=== PATIENT | male | born 1940 ===

== ENCOUNTER 2017-05-19 12:38 | Emergency (ER) | payer BC ==
[2017-05-19 13:12] LABS: URINE BILIRUBIN NEGATIVE (NEGATIVE); URINE BLOOD 3+ (NEGATIVE); URINE CLARITY Clear (Clear); URINE COLOR Yellow (YELLOW); URINE GLUCOSE (UA) NORMAL (Normal); URINE LEUKOCYTE ESTERASE NEG Leu/uL (Negative); URINE NITRATE NEGATIVE (NEGATIVE); URINE PROTEIN 1+ mg/dL (NEGATIVE); URINE UROBILINOGEN NORMAL mg/dL (0.2-1.0)
[2017-05-19 14:02] LABS: BASO % 0.6 % (0.0-2.0); EOS # 0.3 K/uL (0.0-0.7); EOS % 3.8 % (0.0-4.0); HEMOGLOBIN 14.1 g/dL (12.0-18.0); LYMPH # 2.4 K/uL (1.0-4.3); LYMPH % 33.5 % (20.0-40.0); MEAN CELL VOLUME 89.7 fL (80.0-94.0); MEAN CORPUSCULAR HGB CONC 33.5 g/dL (33.0-37.0); MEAN PLATELET VOLUME 8.9 fL (7.2-11.7); MONO # 0.7 K/uL (0.0-0.8); MONO % 9.9 % (0.0-10.0); NEUT # 3.7 K/uL (1.8-7.0); NEUT % 52.2 % (50.0-75.0); NRBC % 0.1 % (0.0-2.0); RBC 4.7 Mil/uL (4.40-5.90); WHITE BLOOD COUNT 7.2 K/uL (4.8-10.8)
[2017-05-19 14:10] LABS: INR 0.9; PROTHROMBIN TIME 10.5 SECONDS (9.7-12.2)
[2017-05-19 14:15] LABS: ALB/GLOB RATIO 1.4 (1.0-2.1); ALBUMIN 4.5 g/dL (3.5-5.0); ALT/SGPT 34 U/L (21-72); AST/SGOT 26 U/L (17-59); BLOOD UREA NITROGEN 21 mg/dL (9-20); CALCIUM 8.9 mg/dl (8.6-10.4); GFR AFRICAN-AMERICAN > 60; GFR NON-AFRICAN AMERICAN > 60
--- NOTE | 2017-05-19 15:17 | CT ---
PROCEDURE: CT Abdomen and Pelvis without Oral or IV contrast. HISTORY: Hematuria. Left lower back pain. COMPARISON: None available TECHNIQUE: Contiguous axial images of the abdomen and pelvis. No oral or IV contrast administered. Coronal and Sagittal reformats generated and reviewed. Radiation dose: Total exam DLP = 1061.22 mGy-cm. This CT exam was performed using one or more of the following dose reduction techniques: Automated exposure control, adjustment of the mA and/or kV according to patient size, and/or use of iterative reconstruction technique. FINDINGS: There is limited evaluation of the solid organs without the administration of IV contrast. LOWER THORAX: Bibasilar atelectasis. There is no visible pleural effusion or pneumothorax. 2 mm right lower lobe calcified granuloma. LIVER: Unremarkable unenhanced appearance. GALLBLADDER AND BILE DUCTS: Unremarkable unenhanced appearance. PANCREAS: Unremarkable unenhanced appearance. SPLEEN: Punctate splenic calcification, likely granuloma. 8 mm probable splenule. ADRENALS: Mild bilateral adrenal gland hypertrophy. KIDNEYS AND URETERS: No hydronephrosis or obstructing renal calculus. Exophytic 14 mm left renal hypodensity and faintly visualized 12 mm left lower pole renal hypodensity likely cysts ; renal ultrasound may be considered for further evaluation. BLADDER: Mildly thick-walled urinary bladder. REPRODUCTIVE: Heterogeneous enlarged prostate gland measures approximately 5.5 x 7.9 cm and contains calcifications. APPENDIX: The appendix appears within normal limits of caliber. No secondary signs of acute appendicitis. BOWEL: The stomach is nondistended. Lack of oral contrast limits evaluation for bowel pathology. The bowel loops appear within normal limits of caliber without evidence of intestinal obstruction. PERITONEUM: No significant free fluid. No definite free air. LYMPH NODES: Prominent but sub cm mesenteric lymph nodes with associated mesenteric inflammatory stranding. VASCULATURE: Atherosclerotic calcifications. No aortic aneurysm. BONES: Degenerative changes. OTHER FINDINGS: Bilateral fat containing inguinal hernias. IMPRESSION: Prominent but sub cm mesenteric lymph nodes with associated mesenteric inflammatory stranding. Correlate clinically for possibility mesenteric adenitis/panniculitis. Exophytic 14 mm left renal hypodensity and faintly visualized 12 mm left lower pole renal hypodensity likely cysts ; renal ultrasound may be considered for further evaluation. Bilateral adrenal gland hypertrophy. Heterogeneous enlarged prostate gland measures approximately 5.5 x 7.9 cm and contains calcifications. Bilateral fat containing inguinal hernias. Mildly thick-walled urinary bladder. Recommend correlation with urinalysis. Additional findings as above.
[2017-05-19 15:41] VITALS: BP 158/56; PULSE 90; RESP 18; TEMP 97; O2SAT 99
--- NOTE | 2017-05-19 16:15 | C.PDOC ---
History Of Present Illness Pt c/o hematuria. Time Seen by Provider: 05/19/17 13:11 Chief Complaint (Nursing): Male Genitourinary History Per: Patient Onset/Duration Of Symptoms: Days (about 1 week), Intermittent Episodes Current Symptoms Are (Timing): Still Present Severity: Moderate Associated Symptoms: Back Pain, Urinary Symptoms Alleviating Factors: None Additional History Per: Prior Records Past Medical History Reviewed: Historical Data, Nursing Documentation, Vital Signs Vital Signs: Last Vital Signs Temp 97.0 F L 05/19/17 15:40 Pulse 90 05/19/17 15:40 Resp 18 05/19/17 15:40 BP 158/56 H 05/19/17 15:40 Pulse Ox 99 05/19/17 15:40 - Medical History PMH: Benign Prostatic Hyperplasia, HTN Family History: States: Unknown Family Hx - Social History Hx Alcohol Use: No Hx Substance Use: No Review Of Systems Except As Marked, All Systems Reviewed And Found Negative. Constitutional: Negative for: Fever, Weakness Cardiovascular: Negative for: Chest Pain Respiratory: Negative for: Shortness of Breath Gastrointestinal: Negative for: Vomiting, Abdominal Pain, Diarrhea Genitourinary: Positive for: Frequency, Hematuria. Negative for: Scrotal Pain Musculoskeletal: Positive for: Back Pain (left lower). Negative for: Neck Pain Skin: Negative for: Rash Neurological: Negative for: Weakness, Numbness, Seizures, Altered Mental Status Physical Exam - Physical Exam Appears: Non-toxic, No Acute Distress Skin: Normal Color, Warm, Dry, No Rash Head: Atraumatic, Normacephalic Eye(s): bilateral: Normal Inspection, PERRL, EOMI Oral Mucosa: Moist Neck: Normal ROM, Supple Cardiovascular: Rhythm Regular Respiratory: Normal Breath Sounds, No Accessory Muscle Use Gastrointestinal/Abdominal: Soft, No Tenderness, No Mass Back: No CVA Tenderness, No Vertebral Tenderness Male Genital: No Testicular Tenderness, No Testicular Swelling, No Scrotal Swelling Extremity: Normal ROM Pulses: Left Femoral: Normal, Right Femoral: Normal Neurological/Psych: Oriented x3, Normal Motor, Normal Sensation ED Course And Treatment - Laboratory Results Result Diagrams: 05/19/17 13:59 05/19/17 13:59 Interpretation Of Abnormal: Hematuria O2 Sat by Pulse Oximetry: 99 Pulse Ox Interpretation: Normal - CT Scan/US CT abd/pelv Other Rad Studies (CT/US): Read By Radiologist, Radiology Report Reviewed CT/US Interpretation: IMPRESSION: Prominent but sub cm mesenteric lymph nodes with associated mesenteric inflammatory stranding. Correlate clinically for possibility mesenteric adenitis/panniculitis. Exophytic 14 mm left renal hypodensity and faintly visualized 12 mm left lower pole renal hypodensity likely cysts ; renal ultrasound may be considered for further evaluation. Bilateral adrenal gland hypertrophy. Heterogeneous enlarged prostate gland measures approximately 5.5 x 7.9 cm and contains calcifications. Bilateral fat containing inguinal hernias. Mildly thick-walled urinary bladder. Recommend correlation with urinalysis. Additional findings as above. Reassessment Condition: Improved Disposition Discussed With Dr.: Bina Woo Comment: I discussed with him the pt's presentation and lab/CT scan findings. He wants pt to f/up in his office for further evaluation. He wants pt to get Rx for Cipro and Finasteride. Doctor Will See Patient In The: Office Counseled Patient/Family Regarding: Studies Performed, Diagnosis, Need For Followup, Rx Given - Disposition Referrals: Bina Woo MD [Staff Provider] - Casper Conley DO [Doctor Osteopathy] - Disposition: HOME/ ROUTINE Disposition Time: 16:17 Condition: IMPROVED Additional Instructions: Follow up with your Urologist this week for further evaluation and treatment. Follow up with your primary doctor for your high blood pressure. Return to the ER if you develop fever, trouble urinating, abdominal pain, worsening of symptoms or if you have any other concerns. Prescriptions: Ciprofloxacin [Cipro] 1 tab PO BID #14 tab Finasteride [Proscar] 5 mg PO DAILY #30 tab Instructions: Acute Hematuria (ED) - Clinical Impression Clinical Impression: Hematuria, Lesion of left jena kidney, Hypertension
== END 2017-05-19 16:34 | disposition home or self-care (01) ==
LOC: C.ER 12:38
DX: R31.9 Hematuria, unspecified (principal); N28.9 Disorder of kidney and ureter, unspecified; I10 Essential (primary) hypertension
CPT/HCPCS: 74176; 80053; 81001; 85025; 85610; 85730; 87086; 96374; 99284; J2270

== ENCOUNTER 2017-06-06 05:13 | Observation (INO) | payer BC, MEDICARE ==
--- NOTE | 2017-06-06 05:30 | C.PDOC ---
History Of Present Illness Patient is a 76 y/o male, with a Hx of BPH, who presents to the ED with a complaint of blood in urine since last night. Patient states he was last able to void at midnight. Patient states he called his urologist Dr. Bina Woo who sent patient to the ED. Patient complains of pressure-like pain in lower abdomen. Patient denies fever. Time Seen by Provider: 06/06/17 05:20 History Per: Patient History/Exam Limitations: no limitations Onset/Duration Of Symptoms: Hrs (last night) Current Symptoms Are (Timing): Still Present Severity: Mild Quality Of Discomfort: Pressure Associated Symptoms: Urinary Symptoms (hematuria) Recent travel outside of the [place]: No Past Medical History Reviewed: Historical Data, Nursing Documentation, Vital Signs Vital Signs: Last Vital Signs Temp 98.4 F 06/06/17 05:33 Pulse 88 06/06/17 05:33 Resp 20 06/06/17 05:33 BP 167/71 H 06/06/17 05:33 Pulse Ox 97 06/06/17 05:33 - Medical History PMH: Benign Prostatic Hyperplasia, HTN Surgical History: No Surg Hx Family History: States: No Known Family Hx - Social History Hx Tobacco Use: No Hx Alcohol Use: No Hx Substance Use: No Review Of Systems Constitutional: Negative for: Fever Gastrointestinal: Positive for: Abdominal Pain (lower abdomen) Genitourinary: Positive for: Hematuria Physical Exam - Physical Exam Appears: Well, Non-toxic, No Acute Distress Skin: Warm, Dry, No Diaphoretic, No Pale Head: Atraumatic, Normacephalic Eye(s): bilateral: Normal Inspection, EOMI Neck: Normal ROM Chest: Symmetrical Cardiovascular: Rhythm Regular, No Murmur Respiratory: Normal Breath Sounds, No Rales, No Rhonchi, No Wheezing Gastrointestinal/Abdominal: Soft, Tenderness (suprapubic tenderness,), Distention (firm abdomen and bladder), No Guarding Back: Normal Inspection, No CVA Tenderness Extremity: Bilateral: Atraumatic, Normal Color And Temperature, Normal ROM Neurological/Psych: Oriented x3, Normal Speech Gait: Steady ED Course And Treatment - Laboratory Results Result Diagrams: 06/06/17 06:00 06/06/17 06:00 Lab Interpretation: Abnormal Medical Decision Making Medical Decision Making: Prior records reviewed patient seen recently on 05/19/17 for hematuria, normal labs and CT Dr. Bina Woo called ED ahead and requested a nick catheter inserted, and CBI, admit to PCP and will see in AM Plan: * Blood work * UA * Nick cath insertion * CBI Patient also seen by Dr Mack who inserted 22Fr 3-way catheter. Labs reviewed Hospitalist admits Dr Conley's patients, page placed Spoke with Dr Perez who accepts patient Disposition - Disposition Disposition: HOSPITALIZED Disposition Time: 06:45 Condition: STABLE - POA Present On Arrival: None - Clinical Impression Clinical Impression: Hematuria - Scribe Statement The provider has reviewed the documentation as recorded by the Scribe Faustina Romo All medical record entries made by the Scribe were at my direction and personally dictated by me. I have reviewed the chart and agree that the record accurately reflects my personal performance of the history, physical exam, medical decision making, and the department course for this patient. I have also personally directed, reviewed, and agree with the discharge instructions and disposition. Decision To Admit - Pt Status Changed To: Hospital Disposition Of: Observation - . Bed Request Type: Regular Admitting Physician: Hollis Perez Patient Diagnosis: Hematuria Procedures - Catheter Insertion (Urinary) Prophylactic Antibiotic Given: No Preparation: Povidone-Iodine Type of Catheter Inserted: 3 way, Nick Catheter Ug[place] Size: 22 Catheter Balloon Size (mLs): 5 Results: unable to pass (blood and clots), urine sent for UA/C&S Patient Tolerated Procedure: well, other Complications: bloody urine
[2017-06-06 06:08] LABS: HEMOGLOBIN 13.4 g/dL (12.0-18.0); MEAN CELL VOLUME 87.5 fL (80.0-94.0); MEAN CORPUSCULAR HEMOGLOBIN 30.7 pg (27.0-31.0); MEAN PLATELET VOLUME 8.3 fL (7.2-11.7); RBC 4.36 Mil/uL (4.40-5.90); RED CELL DISTRIBUTION WIDTH 13.6 % (11.5-14.5); WHITE BLOOD COUNT 9.9 K/uL (4.8-10.8)
[2017-06-06 06:16] LABS: INR 0.9; PROTHROMBIN TIME 10.5 SECONDS (9.7-12.2)
[2017-06-06] MEDS ORDERED: Lidocaine 2% Jelly (Uro-Jet) ONE ×2 (06:16→10:36)
[2017-06-06 06:23] LABS: ALB/GLOB RATIO 1.4 (1.0-2.1); ALBUMIN 4.6 g/dL (3.5-5.0); ALT/SGPT 36 U/L (21-72); AST/SGOT 34 U/L (17-59); BLOOD UREA NITROGEN 21 mg/dL (9-20); CALCIUM 9.4 mg/dl (8.6-10.4); GFR AFRICAN-AMERICAN > 60; GFR NON-AFRICAN AMERICAN > 60
[2017-06-06 06:24] LABS: URINE AMORPHOUS SEDIMENT OCC /ul (<OCC); URINE BILIRUBIN NEGATIVE (NEGATIVE); URINE BLOOD 2+ (NEGATIVE); URINE CLARITY Clear (Clear); URINE COLOR Red (YELLOW); URINE GLUCOSE (UA) 2+ mg/dL (Normal); URINE LEUKOCYTE ESTERASE NEG Leu/uL (Negative); URINE NITRATE NEGATIVE (NEGATIVE); URINE PROTEIN 2+ mg/dL (NEGATIVE); URINE UROBILINOGEN NORMAL mg/dL (0.2-1.0); WBC CLUMPS MANY /hpf
--- NOTE | 2017-06-06 08:58 | CP.PCM.HP ---
<ChenMarylun - Last Filed: 06/06/17 18:51> History of Present Illness - History of Present Illness History of Present Illness: Dr. Musa Montero [facility], Kenneth [id number] 76 year old male with a past medical history of hypertension, BPH, nephrolithiais (s/p removal of stone), and Type 2 Diabetes Mellitus who comes into [facility] complaining of hematuria since yesterday. The patient states that last night he had the urge to void. When attempting to void the patient saw blood coming out. The patient contacted his Urologist Dr. Woo who recommended him to come into the emergency department for a further workup. The patient recently came into the emergency department on 05/19/17 for similar symptoms. In conjunction with the presenting issue he also reports some lower abdomen discomfort bilaterally. The patient denies any chest pain, shortness of breath, fevers, chills, nausea, vomiting, changes in vision, headaches, syncopal episodes, constipation, diarrhea, numbness or tingling in the lower extremities or any other complaints. PMD: [facility] Urologist: Dr. Woo Past medical history: BPH, hypertension, nephrolithiasis, Type 2 Diabetes Mellitus Medications: [facility] ([address] [place] [address]). Will call and verify home medications. Allergies: Denies Past surgical history: Removal of kidney stone Social history: Denies smoking, Social Drinker. Jewel illicit drug use. Lives with . Retired Full code Son Leonard to be proxy in case patient can no longer make medical decisions for himself. Present on Admission - Present on Admission Any Indicators Present on Admission: No Review of Systems - Constitutional Constitutional: absent: Chills, Headache - EENT Eyes: absent: Blurred Vision, Discharge, Loss of Peripheral Vision, Sees Flashes Ears: absent: Ear Pain, Dizziness Nose/Mouth/Throat: absent: Nasal Congestion, Nose Pain, Dysphagia, Mouth Pain, Facial Pain - Cardiovascular Cardiovascular: absent: Chest Pain, Diaphoresis, Irregular Heart Rhythm, Leg Edema, Pedal Edema, Syncope - Respiratory Respiratory: absent: Cough, Hemoptysis, Stridor, Chest Congestion, Excessive Mucous Production, Change in Mucous Color - Gastrointestinal Gastrointestinal: absent: Belching, Dyspepsia, Hematochezia, Loose Stools, Melena, Nausea, Vomiting - Genitourinary Genitourinary: Change in Urinary Stream, Difficulty Urinating, Bladder Distension - Integumentary Integumentary: absent: Sores, Striae, Swelling, Unusual Bruising - Neurological Neurological: absent: Abnormal Hearing, Numbness, Restless Legs, Tremor, Vertigo - Psychiatric Psychiatric: absent: Anxiety, Depression, Hopelessness, Panic Attacks - Hematologic/Lymphatic Hematologic: absent: Easy Bleeding, Easy Bruising Past Patient History - Infectious Disease Hx of Infectious Diseases: None - Past Social History Smoking Status: Never Smoked - CARDIAC Hx Hypertension: Yes - PSYCHIATRIC Hx Substance Use: No - ANESTHESIA Hx Anesthesia: No Meds Allergies/Adverse Reactions: Allergies Allergy/AdvReac Type Severity Reaction Status Date / Time No Known Allergies Allergy Verified 06/06/17 05:43 Physical Exam - Head Exam Head Exam: ATRAUMATIC, NORMAL INSPECTION, NORMOCEPHALIC - Eye Exam Eye Exam: EOMI, Normal appearance, PERRL. absent: Periorbital tenderness Pupil Exam: NORMAL ACCOMODATION, PERRL. absent: Irregular, Unequal - ENT Exam ENT Exam: Mucous Membranes Moist, Normal Exam, Normal Oropharynx - Neck Exam Neck exam: Positive for: Normal Inspection. Negative for: Lymphadenopathy, Thyromegaly - Respiratory Exam Respiratory Exam: Clear to Auscultation Bilateral, NORMAL BREATHING PATTERN - Cardiovascular Exam Cardiovascular Exam: REGULAR RHYTHM, RRR, +S1, +S2. absent: Gallop, Rubs - GI/Abdominal Exam GI & Abdominal Exam: Normal Bowel Sounds, Soft. absent: Distended, Organomegaly , Tenderness - Extremities Exam Extremities exam: Negative for: full ROM, joint swelling, pedal edema Additional comments: nick in place - Back Exam Back exam: NORMAL INSPECTION. absent: CVA tenderness (L), CVA tenderness (R), paraspinal tenderness - Neurological Exam Neurological exam: Alert, CN II-XII Intact, Normal Gait, Oriented x3 - Psychiatric Exam Psychiatric exam: Normal Affect, Normal Mood - Skin Skin Exam: Dry, Intact, Normal Color, Warm Results - Vital Signs Recent Vital Signs: Last Vital Signs Temp 98.4 F 06/06/17 05:33 Pulse 83 06/06/17 07:50 Resp 20 06/06/17 07:50 BP 168/74 H 06/06/17 07:50 Pulse Ox 98 06/06/17 07:50 - Labs Result Diagrams: 06/06/17 06:00 06/06/17 06:00 Labs: Laboratory Results - last 24 hr 06/06/17 06/06/17 06/06/17 05:29 06:00 06:00 WBC 9.9 RBC 4.36 L Hgb 13.4 Hct 38.1 MCV 87.5 D MCH 30.7 MCHC 35.0 RDW 13.6 Plt Count 184 MPV 8.3 PT 10.5 INR 0.9 APTT 38 H Sodium Potassium Chloride Carbon Dioxide Anion Gap BUN Creatinine Est GFR ( Amer) Est GFR (Non-Af Amer) Random Glucose Calcium Total Bilirubin AST ALT Alkaline Phosphatase Total Protein Albumin Globulin Albumin/Globulin Ratio Urine Color Red Urine Clarity Clear Urine pH 7.0 Ur Specific [place] 1.020 Urine Protein 2+ H Urine Glucose (UA) 2+ H Urine Ketones Trace Urine Blood 2+ H Urine Nitrate Negative Urine Bilirubin Negative Urine Urobilinogen Normal Ur Leukocyte Esterase Neg Urine WBC (Auto) 78 H Urine RBC (Auto) 1585 H Urine WBC Clumps (Auto) Many H Amorphous Sediment Occ H 06/06/17 06:00 WBC RBC Hgb Hct MCV MCH MCHC RDW Plt Count MPV PT INR APTT Sodium 128 L Potassium 4.5 Chloride 92 L Carbon Dioxide 22 Anion Gap 19 BUN 21 H Creatinine 0.8 Est GFR ( Amer) > 60 Est GFR (Non-Af Amer) > 60 Random Glucose 149 H Calcium 9.4 Total Bilirubin 0.9 AST 34 ALT 36 Alkaline Phosphatase 84 Total Protein 7.8 Albumin 4.6 Globulin 3.3 Albumin/Globulin Ratio 1.4 Urine Color Urine Clarity Urine pH Ur Specific [place] Urine Protein Urine Glucose (UA) Urine Ketones Urine Blood Urine Nitrate Urine Bilirubin Urine Urobilinogen Ur Leukocyte Esterase Urine WBC (Auto) Urine RBC (Auto) Urine WBC Clumps (Auto) Amorphous Sediment Assessment & Plan - Assessment and Plan (Free Text) Assessment: 76 year old male with a past medical history of hypertension, bph, nephrolithiasis and Type 2 Diabetes. Plan: 1.Hematuria -Chilo consulted. Rec's appreciated -?Rec's appreciated -NPO -Continue bladder irrigation -Urine cx. Will f/u with results -Rocephin 1gram q24. 2. Hyponatremia -Will continue to monitor. -TSH/T4 ordered. Will f/u with results -Lipid panel ordered. Will f/u with results -Cortisol level. Will f/u with results. -Can't due urine osmolaritiy, urine Na 2/2 to bladder irrigation 3.BPH -Proscar 5mg PO Daily -Flomax .4mg PO Daily 4.Hypertension -Lisinopril 10mg PO Daily 5. Type 2 Diabetes -Heart healthy, 2gm Na diet -Regular Insulin -Hemoglobin A1C % ordered. Will f/u with results. -Will f/u with lipid panel. PPX -Hold anticoagulation risk despite DVT risk score of 3 -SCD's -Protonix 40mg Daily <Musa Montero - Last Filed: 06/06/17 19:49> Results - Vital Signs Recent Vital Signs: Last Vital Signs Temp 97.8 F 06/06/17 15:10 Pulse 80 06/06/17 15:10 Resp 18 06/06/17 15:10 BP 147/68 06/06/17 15:10 Pulse Ox 98 06/06/17 15:10 - Labs Result Diagrams: 06/06/17 06:00 06/06/17 06:00 Labs: Laboratory Results - last 24 hr 06/06/17 06/06/17 06/06/17 05:29 06:00 06:00 WBC 9.9 RBC 4.36 L Hgb 13.4 Hct 38.1 MCV 87.5 D MCH 30.7 MCHC 35.0 RDW 13.6 Plt Count 184 MPV 8.3 PT 10.5 INR 0.9 APTT 38 H Sodium Potassium Chloride Carbon Dioxide Anion Gap BUN Creatinine Est GFR ( Amer) Est GFR (Non-Af Amer) POC Glucose (mg/dL) Random Glucose Calcium Total Bilirubin AST ALT Alkaline Phosphatase Total Protein Albumin Globulin Albumin/Globulin Ratio Triglycerides Cholesterol LDL Cholesterol Direct HDL Cholesterol Thyroxine (T4) TSH 3rd Generation Cortisol AM Sample Urine Color Red Urine Clarity Clear Urine pH 7.0 Ur Specific [place] 1.020 Urine Protein 2+ H Urine Glucose (UA) 2+ H Urine Ketones Trace Urine Blood 2+ H Urine Nitrate Negative Urine Bilirubin Negative Urine Urobilinogen Normal Ur Leukocyte Esterase Neg Urine WBC (Auto) 78 H Urine RBC (Auto) 1585 H Urine WBC Clumps (Auto) Many H Amorphous Sediment Occ H 01/27/18 01/27/18 01/27/18 06:00 11:14 11:16 WBC RBC Hgb Hct MCV MCH MCHC RDW Plt Count MPV PT INR APTT Sodium 128 L Potassium 4.5 Chloride 92 L Carbon Dioxide 22 Anion Gap 19 BUN 21 H Creatinine 0.8 Est GFR ( Amer) > 60 Est GFR (Non-Af Amer) > 60 POC Glucose (mg/dL) Random Glucose 149 H Calcium 9.4 Total Bilirubin 0.9 AST 34 ALT 36 Alkaline Phosphatase 84 Total Protein 7.8 Albumin 4.6 Globulin 3.3 Albumin/Globulin Ratio 1.4 Triglycerides 143 Cholesterol 143 LDL Cholesterol Direct 56 HDL Cholesterol 46 Thyroxine (T4) 6.48 TSH 3rd Generation 1.17 Cortisol AM Sample 60.9 H Urine Color Urine Clarity Urine pH Ur Specific [place] Urine Protein Urine Glucose (UA) Urine Ketones Urine Blood Urine Nitrate Urine Bilirubin Urine Urobilinogen Ur Leukocyte Esterase Urine WBC (Auto) Urine RBC (Auto) Urine WBC Clumps (Auto) Amorphous Sediment 06/06/17 06/06/17 11:53 17:03 WBC RBC Hgb Hct MCV MCH MCHC RDW Plt Count MPV PT INR APTT Sodium Potassium Chloride Carbon Dioxide Anion Gap BUN Creatinine Est GFR ( Amer) Est GFR (Non-Af Amer) POC Glucose (mg/dL) 123 H 169 H Random Glucose Calcium Total Bilirubin AST ALT Alkaline Phosphatase Total Protein Albumin Globulin Albumin/Globulin Ratio Triglycerides Cholesterol LDL Cholesterol Direct HDL Cholesterol Thyroxine (T4) TSH 3rd Generation Cortisol AM Sample Urine Color Urine Clarity Urine pH Ur Specific [place] Urine Protein Urine Glucose (UA) Urine Ketones Urine Blood Urine Nitrate Urine Bilirubin Urine Urobilinogen Ur Leukocyte Esterase Urine WBC (Auto) Urine RBC (Auto) Urine WBC Clumps (Auto) Amorphous Sediment Attending/Attestation - Attestation I have personally seen and examined this patient.: Yes I have fully participated in the care of the patient.: Yes I have reviewed all pertinent clinical information: Yes Notes (Text): 06/06/17 19:46 Patient was seen and examined at 8 AM History, physical, assessment and plan were thoroughly gone over with the resident. Spoke with Dr. Louis Woo and patient for Cystotscopy likely on Thursday. Musa Montero D.O.
[2017-06-06] MEDS ORDERED: Morphine 4 MG/ML VIAL ONE (10:22)
[2017-06-06 12:14] LABS: T4 6.48 ug/dL (5.5-11.0)
[2017-06-06] MEDS: (Novolin R) Insulin Human Regular 100 units/ml vial SC SCH ×3 (12:37→21:47)
--- NOTE | 2017-06-06 21:22 | PCM.URO ---
Urology Progress Note - Objective Lab Studies: Reviewed (hematuria plans: cystoscopy / most likely thursday 06/08) Lab Results Last 24 Hours: Laboratory Results - last 24 hr 06/06/17 06/06/17 06/06/17 05:29 06:00 06:00 WBC 9.9 RBC 4.36 L Hgb 13.4 Hct 38.1 MCV 87.5 D MCH 30.7 MCHC 35.0 RDW 13.6 Plt Count 184 MPV 8.3 PT 10.5 INR 0.9 APTT 38 H Sodium Potassium Chloride Carbon Dioxide Anion Gap BUN Creatinine Est GFR ( Amer) Est GFR (Non-Af Amer) POC Glucose (mg/dL) Random Glucose Calcium Total Bilirubin AST ALT Alkaline Phosphatase Total Protein Albumin Globulin Albumin/Globulin Ratio Triglycerides Cholesterol LDL Cholesterol Direct HDL Cholesterol Thyroxine (T4) TSH 3rd Generation Cortisol AM Sample Urine Color Red Urine Clarity Clear Urine pH 7.0 Ur Specific [place] 1.020 Urine Protein 2+ H Urine Glucose (UA) 2+ H Urine Ketones Trace Urine Blood 2+ H Urine Nitrate Negative Urine Bilirubin Negative Urine Urobilinogen Normal Ur Leukocyte Esterase Neg Urine WBC (Auto) 78 H Urine RBC (Auto) 1585 H Urine WBC Clumps (Auto) Many H Amorphous Sediment Occ H 06/06/17 06/06/17 06/06/17 06:00 11:14 11:16 WBC RBC Hgb Hct MCV MCH MCHC RDW Plt Count MPV PT INR APTT Sodium 128 L Potassium 4.5 Chloride 92 L Carbon Dioxide 22 Anion Gap 19 BUN 21 H Creatinine 0.8 Est GFR ( Amer) > 60 Est GFR (Non-Af Amer) > 60 POC Glucose (mg/dL) Random Glucose 149 H Calcium 9.4 Total Bilirubin 0.9 AST 34 ALT 36 Alkaline Phosphatase 84 Total Protein 7.8 Albumin 4.6 Globulin 3.3 Albumin/Globulin Ratio 1.4 Triglycerides 143 Cholesterol 143 LDL Cholesterol Direct 56 HDL Cholesterol 46 Thyroxine (T4) 6.48 TSH 3rd Generation 1.17 Cortisol AM Sample 60.9 H Urine Color Urine Clarity Urine pH Ur Specific [place] Urine Protein Urine Glucose (UA) Urine Ketones Urine Blood Urine Nitrate Urine Bilirubin Urine Urobilinogen Ur Leukocyte Esterase Urine WBC (Auto) Urine RBC (Auto) Urine WBC Clumps (Auto) Amorphous Sediment 06/06/17 06/06/17 06/06/17 11:53 17:03 21:13 WBC RBC Hgb Hct MCV MCH MCHC RDW Plt Count MPV PT INR APTT Sodium Potassium Chloride Carbon Dioxide Anion Gap BUN Creatinine Est GFR ( Amer) Est GFR (Non-Af Amer) POC Glucose (mg/dL) 123 H 169 H 187 H Random Glucose Calcium Total Bilirubin AST ALT Alkaline Phosphatase Total Protein Albumin Globulin Albumin/Globulin Ratio Triglycerides Cholesterol LDL Cholesterol Direct HDL Cholesterol Thyroxine (T4) TSH 3rd Generation Cortisol AM Sample Urine Color Urine Clarity Urine pH Ur Specific [place] Urine Protein Urine Glucose (UA) Urine Ketones Urine Blood Urine Nitrate Urine Bilirubin Urine Urobilinogen Ur Leukocyte Esterase Urine WBC (Auto) Urine RBC (Auto) Urine WBC Clumps (Auto) Amorphous Sediment Intake & Output: Intake & Output 06/06/17 06/06/17 06/07/17 06:59 18:59 06:59 Output Total 2500 Balance -2500 Weight 185 lb Output: Urine 2500 Vital Signs: Vital Signs - 24 hr 06/06/17 06/06/17 06/06/17 05:33 07:50 11:25 Temperature 98.4 F 97.9 F Pulse Rate 88 83 80 Respiratory 20 20 16 Rate Blood Pressure 167/71 H 168/74 H 168/74 H O2 Sat by Pulse 97 98 97 Oximetry 06/06/17 15:10 Temperature 97.8 F Pulse Rate 80 Respiratory 18 Rate Blood Pressure 147/68 O2 Sat by Pulse 98 Oximetry
[2017-06-07] MEDS: (Novolin R) Insulin Human Regular 100 units/ml vial SC SCH ×4 (08:01→21:42)
--- NOTE | 2017-06-07 11:51 | CP.PCM.PN ---
Subjective - Date & Time of Evaluation Date of Evaluation: 06/07/17 Time of Evaluation: 11:30 - Subjective Subjective: Hospitalist Progress Note Patient was seen and examined at 11:30 AM 06/07/17 357 B Very pleasant 76 year old male (PMHx BPH, HTN, DM 2, Nephrolithiasis) who was admitted on morning 06/06/17 for evaluation of Hematuria. He was placed on Continuous Bladder Irrigation while in the ER and later a Hein Catheter was placed. Please see Assessment and Plans below for details. Currently upon FULL ROS: Suprapubic pressure like pain has resolved after placement of Hein Catheter and removal of CBI NO chest pain NO palpitations NO SOB/Cough/Wheezing NO abdominal pain NO dysphagia/oydnophagia NO n/v/d/c: last normal bowel movement was last night 06/06/17 NO new changes in vision NO new changes in hearing NO paresthesias Chronic Left Ankle edema after fracture Exam: HEENT: NCA, EOMI, PERRLA, NO Pharyngeal erythema/exudate, NO cervical/ supraclavicular/submandibular lymphadenopathy, NO thyromegaly Cardio: Systolic Ejection Murmur [place] best at the [place] and Left Lower Sternal Border Resp:CTA B/L GI: Soft, NT, ND, NO rebound/guarding Ext: Pulses are strong and equal, Capillary Refill is 2 seconds, 1+ Pitting Edema Left Ankle Neuro: CN II through XII are grossly intact Assessment and Plan: 1.Hematuria and Hx BPH Urology Dr. Woo will be taking patient for Cystoscopy morning 06/08/17 Ceftriaxone 1 gm IV 1x/day Proscar 5 mg PO 1x/day Flomax 0.4 mg PO 1x/day 2. Hyponatremia TSH, T4, Triglycerides, Cortisol do not indicate as source of etiology NO urine osmolality or urine Na ordered due to bladder irrigation Monitor 3. Hypertension Norvasc 5mg PO 1x/day Losartan 50 mg PO 1x/day 4. Type 2 Diabetes HgBA1C 6.7 Lipid Panel, TSH, T4 are within normal limits Spoke with [facility] in [place] [phone] and patient is NOT on any DM medications (only medications that were on record are Proscar and Ciprofloxacin) RISS for now On an ARB (losartan) and Statin (Crestor) Upon discharge, provide Metformin 500 mg PO 1x/day and Atorvastatin 10 mg PO 1x/ day 5. Prophylaxis Hold anticoagulation risk despite DVT risk score of 3 due to the continued Hematuria SCD's Protonix 40mg Daily Heart Healthy 2 gm Na Diabetic Diet NPO after midnight tonight except for medications for Cystoscopy with Dr. Carmen Woo on morning 06/08/17. Musa Montero D.O. Objective - Vital Signs/Intake and Output Vital Signs (last 24 hours): Temp Pulse Resp BP Pulse Ox 98.7 F 77 20 121/73 98 06/07/17 00:00 06/07/17 00:00 06/07/17 00:00 06/07/17 00:00 06/07/17 03:35 Intake and Output: 06/07/17 06/07/17 06:59 18:59 Intake Total 150 5100 Output Total 400 700 Balance -250 4400 - Medications Medications: Current Medications Amlodipine Besylate (Norvasc) 5 mg PO DAILY [facility] Last Admin: 06/07/17 09:46 Dose: 5 mg Finasteride (Proscar) 5 mg PO DAILY [facility] Last Admin: 06/07/17 09:46 Dose: 5 mg Ceftriaxone Sodium 1 gm/ (Sodium Chloride) 100 mls @ 100 mls/hr IVPB DAILY [facility] Last Admin: 06/07/17 10:31 Dose: 100 mls/hr Insulin Human Regular (Novolin R) 0 unit SC ACHS [facility] PRN Reason: Protocol Last Admin: 06/07/17 08:01 Dose: Not Given Losartan Potassium (Cozaar) 50 mg PO DAILY [facility] Last Admin: 06/07/17 09:46 Dose: 50 mg Rosuvastatin Calcium (Crestor) 5 mg PO HS [facility] Last Admin: 06/06/17 21:46 Dose: 5 mg Tamsulosin HCl (Flomax) 0.4 mg PO DAILY [facility] Last Admin: 06/07/17 09:46 Dose: 0.4 mg - Labs Labs: 06/06/17 06:00 06/06/17 06:00 PT 10.5 SECONDS (9.7-12.2) 06/06/17 06:00 INR 0.9 06/06/17 06:00 APTT 38 SECONDS (21-34) H 06/06/17 06:00
[2017-06-07] MEDS ORDERED: Glucagon Recombinant 1 mg Inj IM PRN (12:05)
[2017-06-07] MEDS ORDERED: Dextrose 50% SYRINGE Inj (50 ml) IV PRN (12:05)
[2017-06-07 16:58] LABS: MEAN CELL VOLUME 88.4 fL (80.0-94.0); MEAN CORPUSCULAR HEMOGLOBIN 29.8 pg (27.0-31.0); MEAN CORPUSCULAR HGB CONC 33.7 g/dL (33.0-37.0); MEAN PLATELET VOLUME 8.7 fL (7.2-11.7); RBC 3.87 Mil/uL (4.40-5.90); RED CELL DISTRIBUTION WIDTH 13.9 % (11.5-14.5); WHITE BLOOD COUNT 9.6 K/uL (4.8-10.8)
[2017-06-07 17:07] LABS: HEMOGLOBIN 11.5 g/dL (12.0-18.0)
[2017-06-07 17:11] LABS: ALB/GLOB RATIO 1.3 (1.0-2.1); ALBUMIN 3.6 g/dL (3.5-5.0); ALT/SGPT 36 U/L (21-72); AST/SGOT 30 U/L (17-59); BLOOD UREA NITROGEN 16 mg/dL (9-20); CALCIUM 8.5 mg/dl (8.6-10.4); GFR AFRICAN-AMERICAN > 60; GFR NON-AFRICAN AMERICAN > 60
[2017-06-07] MEDS: Saccharomyces Boulardi 250 mg Cap PO SCH (17:51)
[2017-06-08 07:33] LABS: HEMOGLOBIN 11.5 g/dL (12.0-18.0); MEAN CELL VOLUME 88.1 fL (80.0-94.0); MEAN CORPUSCULAR HEMOGLOBIN 30.2 pg (27.0-31.0); MEAN CORPUSCULAR HGB CONC 34.2 g/dL (33.0-37.0); MEAN PLATELET VOLUME 8.4 fL (7.2-11.7); RBC 3.8 Mil/uL (4.40-5.90); RED CELL DISTRIBUTION WIDTH 13.6 % (11.5-14.5); WHITE BLOOD COUNT 9.5 K/uL (4.8-10.8)
[2017-06-08] MEDS ORDERED: cefTRIAXone 1 gm 0 GM/0 ML BAG IVPB ONE (07:49)
[2017-06-08] MEDS: (Novolin R) Insulin Human Regular 100 units/ml vial SC SCH ×2 (08:00→11:30)
[2017-06-08 08:12] LABS: ALB/GLOB RATIO 1.3 (1.0-2.1); ALBUMIN 3.7 g/dL (3.5-5.0); ALT/SGPT 26 U/L (21-72); AST/SGOT 27 U/L (17-59); BLOOD UREA NITROGEN 14 mg/dL (9-20); CALCIUM 8.7 mg/dl (8.6-10.4); GFR AFRICAN-AMERICAN > 60; GFR NON-AFRICAN AMERICAN > 60
[2017-06-08] MEDS: Saccharomyces Boulardi 250 mg Cap PO SCH ×2 (10:03→17:48)
[2017-06-08] MEDS ORDERED: Iohexol 240 (50 ml) ONE (10:50)
[2017-06-08] MEDS ORDERED: cefTRIAXone 1 gm 1 GM/100 ML BAG IVPB ONE (10:50)
[2017-06-08] MEDS ORDERED: Lidocaine 2% Jelly (Uro-Jet) ONE (10:50)
[2017-06-08] MEDS ORDERED: Propofol 10 mg/ml Inj (20 ML) ONE (11:29)
[2017-06-08] MEDS ORDERED: Midazolam 2 MG/2 ML VIAL ONE (11:29)
--- NOTE | 2017-06-08 12:14 | PCM.SURG1 ---
Surgeon's Initial Post Op Note - Surgeon's Notes Surgeon: Carmen Woo Element Winding Machine Tender: none Type of Anesthesia: General Mask Pre-Operative Diagnosis: Hematuria. Urinary retention. BPH Operative Findings: Bleeding of prostatic origin, enlarged porstate Post-Operative Diagnosis: same Operation Performed: cysto. attempted rtg pyelogram,. evacuation of clots. fulguration of prostatic bleeding Specimen/Specimens Removed: none Estimated Blood Loss: EBL {In ML}: 30 Blood Products Given: N/A Date of Surgery/Procedure: 06/08/17 Time of Surgery/Procedure: 12:14
[2017-06-08] MEDS ORDERED: Potassium Ch 20mEq in D5-1/2NS 1,000 ML IV SCH (12:30)
--- NOTE | 2017-06-08 13:50 | RAD ---
PROCEDURE: Intraoperative Fluoroscopy. HISTORY: HEMATURIA FINDINGS: Fluoroscopic assistance was provided. 0.9 seconds fluoroscopy time utilized during this procedure. Radiation dose: Total DLP = 0.1457
--- NOTE | 2017-06-08 14:19 | CP.PCM.PN ---
Subjective - Date & Time of Evaluation Date of Evaluation: 06/08/17 Time of Evaluation: 15:00 - Subjective Subjective: Medicine progress note for Dr. Soni Patient seen and examined at bedside. Patient is s/p cystoscopy earlier today. He endorses no acute complaints at this time. He is resting comfortably in bed and is not in any pain at the moment. Objective - Vital Signs/Intake and Output Vital Signs (last 24 hours): Temp Pulse Resp BP Pulse Ox 97 F L 56 L 13 161/72 H 100 06/08/17 13:15 06/08/17 13:15 06/08/17 13:15 06/08/17 13:15 06/08/17 13:15 Intake and Output: 06/08/17 06/08/17 06:59 18:59 Intake Total 85006 6150 Output Total 35626 6550 Balance -550 -400 - Medications Medications: Current Medications Amlodipine Besylate (Norvasc) 5 mg PO DAILY [facility] Last Admin: 06/08/17 10:03 Dose: Not Given Dextrose (Dextrose 50% Inj) 0 ml IV STAT PRN; Protocol PRN Reason: Hypoglycemia Protocol Dextrose (Glutose 15) 0 gm PO ONCE PRN; Protocol PRN Reason: Hypoglycemia Protocol Finasteride (Proscar) 5 mg PO DAILY [facility] Last Admin: 06/08/17 10:03 Dose: Not Given Glucagon (Glucagen Diagnostic Kit) 0 mg IM STAT PRN; Protocol PRN Reason: Hypoglycemia Protocol Ceftriaxone Sodium 1 gm/ (Sodium Chloride) 100 mls @ 100 mls/hr IVPB DAILY [facility] Last Admin: 06/08/17 13:50 Dose: 100 mls/hr Dextrose (Dextrose 5% In Water 1000 Ml) 1,000 mls @ 0 mls/hr IV .Q0M PRN; Protocol; Per Protocol PRN Reason: Hypoglycemia Protocol Insulin Human Regular (Novolin R) 0 unit SC ACHS [facility] PRN Reason: Protocol Last Admin: 06/08/17 11:30 Dose: Not Given Losartan Potassium (Cozaar) 50 mg PO DAILY [facility] Last Admin: 06/08/17 10:03 Dose: Not Given Rosuvastatin Calcium (Crestor) 5 mg PO HS [facility] Last Admin: 06/07/17 21:15 Dose: 5 mg Saccharomyces Boulardii (Florastor) 250 mg PO BID [facility] Last Admin: 06/08/17 10:03 Dose: Not Given Tamsulosin HCl (Flomax) 0.4 mg PO DAILY [facility] Last Admin: 06/08/17 10:03 Dose: Not Given - Labs Labs: 06/08/17 07:23 06/08/17 07:23 PT 10.5 SECONDS (9.7-12.2) 06/06/17 06:00 INR 0.9 06/06/17 06:00 APTT 38 SECONDS (21-34) H 06/06/17 06:00 - Constitutional Appears: No Acute Distress - Head Exam Head Exam: ATRAUMATIC, NORMOCEPHALIC - Eye Exam Eye Exam: EOMI, Normal appearance - ENT Exam ENT Exam: Mucous Membranes Moist - Respiratory Exam Respiratory Exam: Clear to Ausculation Bilateral, NORMAL BREATHING PATTERN. absent: Rales, Rhonchi, Wheezes - Cardiovascular Exam Cardiovascular Exam: REGULAR RHYTHM, +S1, +S2, Murmur (systolic) - GI/Abdominal Exam GI & Abdominal Exam: Soft, Normal Bowel Sounds. absent: Tenderness - Exam Additional comments: Hein in place, getting CBI at the moment - Extremities Exam Extremities Exam: Pedal Edema. absent: Tenderness - Neurological Exam Neurological Exam: Alert, Awake, Oriented x3 - Psychiatric Exam Psychiatric exam: Normal Affect, Normal Mood - Skin Skin Exam: Dry, Warm Assessment and Plan - Assessment and Plan (Free Text) Plan: Hematuria with Hx BPH Urology consult, Dr. Woo, help appreciated s/p Cystoscopy 06/08/17 Ceftriaxone 1 gm IV daily Proscar 5 mg PO daily Flomax 0.4 mg PO daily Hyponatremia Monitor Hypertension Norvasc 5mg PO daily Losartan 50 mg PO daily Type 2 Diabetes HgBA1C 6.7 Lipid Panel, TSH, T4 are within normal limits Regular ISS On an Losartan and Crestor Prophylactic Measure VTE ppx CI due to bleed SCDs Protonix 40mg Daily Heart Healthy 2 gm Na Diabetic Diet Case DW Dr. Zachariah Martinez
--- NOTE | 2017-06-08 14:34 | RAD ---
HISTORY: HEMATURIA COMPARISON: No prior. FINDINGS: BOWEL: A single film is submitted labeled ethics manager. The bowel gas pattern is unremarkable. There is no hepatic or splenic enlargement. There are no masses or abnormal intra-abdominal calcifications. BONES: Normal. OTHER FINDINGS: None. IMPRESSION: No active disease.
[2017-06-08 16:16] VITALS: BP 144/67; PULSE 61; RESP 20; TEMP 97.8; O2SAT 98
--- NOTE | 2017-06-08 18:47 | CP.PCM.DIS ---
Provider - Provider Date of Admission: 06/06/17 06:46 Attending physician: Britni Soni DO Primary care physician: Dr. Conley Consults: Urology-Dr. Bina Woo Time Spent in preparation of Discharge (in minutes): 40 Diagnosis - Discharge Diagnosis (1) Hematuria Status: Acute (2) BPH (benign prostatic hyperplasia) Status: Chronic (3) History of diabetes mellitus Status: Chronic (4) History of hypertension Status: Chronic Hospital Course - Lab Results Lab Results: Micro Results 06/06/17 05:29 Urine Urine Culture - Final No Growth (<1,000 CFU/ML) Most Recent Lab Values WBC 9.5 K/uL (4.8-10.8) 06/08/17 07:23 RBC 3.80 Mil/uL (4.40-5.90) L 06/08/17 07:23 Hgb 11.5 g/dL (12.0-18.0) L 06/08/17 07:23 Hct 33.5 % (35.0-51.0) L 06/08/17 07:23 MCV 88.1 fL (80.0-94.0) 06/08/17 07:23 MCH 30.2 pg (27.0-31.0) 06/08/17 07:23 MCHC 34.2 g/dL (33.0-37.0) 06/08/17 07:23 RDW 13.6 % (11.5-14.5) 06/08/17 07:23 Plt Count 143 K/uL (130-400) 06/08/17 07:23 MPV 8.4 fL (7.2-11.7) 06/08/17 07:23 PT 10.5 SECONDS (9.7-12.2) 06/06/17 06:00 INR 0.9 06/06/17 06:00 APTT 38 SECONDS (21-34) H 06/06/17 06:00 Sodium 133 mmol/L (132-148) 06/08/17 07:23 Potassium 3.9 mmol/L (3.6-5.2) 06/08/17 07:23 Chloride 97 mmol/L (98-107) L 06/08/17 07:23 Carbon Dioxide 28 mmol/L (22-30) 06/08/17 07:23 Anion Gap 11 (10-20) 06/08/17 07:23 BUN 14 mg/dL (9-20) 06/08/17 07:23 Creatinine 0.8 mg/dL (0.8-1.5) 06/08/17 07:23 Est GFR ( Amer) > 60 06/08/17 07:23 Est GFR (Non-Af Amer) > 60 06/08/17 07:23 POC Glucose (mg/dL) 180 mg/dL (65-110) H 06/08/17 16:06 Random Glucose 128 mg/dL (75-110) H 06/08/17 07:23 Hemoglobin A1c 6.7 % (4.2-6.5) H 06/06/17 11:14 Calcium 8.7 mg/dl (8.6-10.4) 06/08/17 07:23 Total Bilirubin 0.6 mg/dL (0.2-1.3) 06/08/17 07:23 AST 27 U/L (17-59) 06/08/17 07:23 ALT 26 U/L (21-72) 06/08/17 07:23 Alkaline Phosphatase 63 U/L (38-126) 06/08/17 07:23 Total Protein 6.4 g/dL (6.3-8.3) 06/08/17 07:23 Albumin 3.7 g/dL (3.5-5.0) 06/08/17 07:23 Globulin 2.7 gm/dL (2.2-3.9) 06/08/17 07:23 Albumin/Globulin Ratio 1.3 (1.0-2.1) 06/08/17 07:23 Triglycerides 143 mg/dL (0-149) 06/06/17 11:14 Cholesterol 143 mg/dL (0-199) 06/06/17 11:14 LDL Cholesterol Direct 56 mg/dL (0-129) 06/06/17 11:14 HDL Cholesterol 46 mg/dL (30-70) 06/06/17 11:14 Thyroxine (T4) 6.48 ug/dL (5.5-11.0) 06/06/17 11:14 TSH 3rd Generation 1.17 mIU/L (0.46-4.68) 06/06/17 11:14 Cortisol AM Sample 60.9 ug/dL (4.46-22.7) H 06/06/17 11:16 Urine Color Red (YELLOW) 06/06/17 05:29 Urine Clarity Clear (Clear) 06/06/17 05:29 Urine pH 7.0 (5.0-8.0) 06/06/17 05:29 Ur Specific Collins 1.020 (1.003-1.030) 06/06/17 05:29 Urine Protein 2+ mg/dL (NEGATIVE) H 06/06/17 05:29 Urine Glucose (UA) 2+ mg/dL (Normal) H 06/06/17 05:29 Urine Ketones Trace mg/dL (NEGATIVE) 06/06/17 05:29 Urine Blood 2+ (NEGATIVE) H 06/06/17 05:29 Urine Nitrate Negative (NEGATIVE) 06/06/17 05:29 Urine Bilirubin Negative (NEGATIVE) 06/06/17 05:29 Urine Urobilinogen Normal mg/dL (0.2-1.0) 06/06/17 05:29 Ur Leukocyte Esterase Neg Aby/uL (Negative) 06/06/17 05:29 Urine WBC (Auto) 78 /hpf (0-5) H 06/06/17 05:29 Urine RBC (Auto) 1585 /hpf (0-3) H 06/06/17 05:29 Urine WBC Clumps (Auto) Many /hpf (NONE) H 06/06/17 05:29 Amorphous Sediment Occ /ul (<OCC) H 06/06/17 05:29 - Hospital Course Hospital Course: On admission: "76 year old male with a past medical history of hypertension, BPH, nephrolithiais (s/p removal of stone), and Type 2 Diabetes Mellitus who comes into [facility] complaining of hematuria since yesterday. The patient states that last night he had the urge to void. When attempting to void the patient saw blood coming out. The patient contacted his Urologist Dr. Woo who recommended him to come into the emergency department for a further workup. The patient recently came into the emergency department on 05/19/17 for similar symptoms. In conjunction with the presenting issue he also reports some lower abdomen discomfort bilaterally. The patient denies any chest pain, shortness of breath, fevers, chills, nausea, vomiting, changes in vision, headaches, syncopal episodes, constipation, diarrhea, numbness or tingling in the lower extremities or any other complaints." Hospital Course: Patient admitted for workup of hematuria. Urologist Dr. Bina Woo was consulted. Patient placed on continuous bladder irrigation. Patient underwent cystoscopy on 06/08/17 with evacuation of clots and fulguration of prostatic bleeding. Per Dr. Woo, his bleeding was of prostatic origin due to his enlarged prostate. Urine in nick later in the day was a mix of serosanguinous bordering on clear by the time of discharge. Per Dr. Woo, patient is stable for discharge and is to be sent home with his catheter and a leg bag for the nick. Patient is to follow up with him for catheter removal. Dr. Woo requests patient to be discharged on Flomax, Proscar, and an antibiotic. This was explained to the patient who voiced understanding as he has been taken care of by Dr. Woo in the past. Discharge Exam - Head Exam Head Exam: ATRAUMATIC, NORMOCEPHALIC - Eye Exam Eye Exam: EOMI, Normal appearance - ENT Exam ENT Exam: Mucous Membranes Moist - Respiratory Exam Respiratory Exam: Clear to PA & Lateral, NORMAL BREATHING PATTERN. absent: Rales, Rhonchi, Wheezes, Respiratory Distress - Cardiovascular Exam Cardiovascular Exam: REGULAR RHYTHM, +S1, +S2, Systolic Murmur - GI/Abdominal Exam GI & Abdominal Exam: Normal Bowel Sounds, Soft. absent: Tenderness - Exam Additional comments: Nick in place with mix of serosanguinous to clear urine in the bag - Extremities Exam Extremities exam: pedal pulses present - Neurological Exam Neurological exam: Alert, CN II-XII Intact, Oriented x3 - Psychiatric Exam Psychiatric exam: Normal Affect, Normal Mood - Skin Skin Exam: Dry, Warm Discharge Plan - Discharge Medications Prescriptions: Atorvastatin [Lipitor] 10 mg PO HS #30 tab Ciprofloxacin [Cipro] 500 mg PO BID #10 tab Finasteride [Proscar] 5 mg PO DAILY #30 tab Losartan [Cozaar] 50 mg PO DAILY #30 tab metFORMIN [glucOPHAGE] 500 mg PO BID #60 tab Tamsulosin [Flomax] 0.4 mg PO DAILY #30 cap - Follow Up Plan Condition: STABLE Disposition: HOME/ ROUTINE Instructions: Ciprofloxacin (By mouth), Finasteride (By mouth), Losartan (By mouth), Metformin (By mouth), Atorvastatin (By mouth), Tamsulosin (By mouth), Acute Hematuria (DC) Additional Instructions: Please take the Metformin 500 mg twice a day starting on Thursday. Please take Losartan 50 mg once a day. Please take Atorvastatin 10 mg once a day at bedtime. Please take Flomax 0.4 mg once a day. Please take Proscar 5 mg once a day. Please take Cipro 500 mg two times a day for 5 days. Please follow up with Dr. Woo in his office so he can remove the catheter for you. Please follow up with your primary Dr. Conley or the [place] clinic within a week of discharge. If there are any new or concerning symptoms, please return to the emergency room. Por favor, tome Metformin 500 mg dos veces al da a partir del mircoles. Por favor, tome Losartan 50 mg jon vez al da. [place] Atorvastatin 10 mg jon vez al da a la hora de acostarse. Por favor tome Flomax 0.4 mg jon vez al da. Por favor, tome Proscar 5 mg jon vez al da. Por favor, tome Cipro 500 mg dos veces al da german 5 buenrostro. Por favor dodie un seguimiento con el Dr. Woo en vivar oficina para que pueda quitarle el catter. Por favor, dodie un seguimiento con vivar Dr. Conley primario o la [facility] [place] dentro de la semana posterior al marko. Si hay algn sntoma nuevo o preocupante, regrese a la deisy de emergencias. Referrals: Bina Woo MD [Staff Provider] - Casper Conley DO [Doctor Osteopathy] -
--- NOTE | 2017-06-11 00:07 | OP ---
PROCEDURE DATE: 06/08/2017 UROLOGY OPERATIVE REPORT PREOPERATIVE DIAGNOSES: Hematuria. Urinary retention. POSTOPERATIVE DIAGNOSES: Hematuria. Urinary retention. Bleeding of prostatic origin. Enlarged prostate. PROCEDURE Cystoscopy. Attempted retrograde pyelogram with Fluoroscopy. Evacuation of bladder clots. Fulguration of prostatic bleeding. OPERATING SURGEON: Bina Woo MD. DESCRIPTION OF PROCEDURE: Procedure as follows. The patient was placed in lithotomy position. Anesthesia was applied by the anesthesiologist. Genitalia prepped and draped sterilely. The patient had received antibiotic therapy. A 22-Kenyan cystoscope sheath was introduced under direct vision. Urethra, prostate and bladder were inspected. FINDINGS: There was no stricture of the anterior urethra. There was evidence of trilobar prostatic hypertrophy. There was a moderate middle lobe enlargement with intravesical intrusion. There was diffuse moderate bleeding from the prostatic urethral mucosal surface. There were prominent blood vessels on the prostatic urethra. There were multiple clots within the bladder, which we irrigated free. There was a moderate bladder trabeculation. There was no bladder tumor. There was no bladder stone. The attempted retrograde ureteropyelogram was performed. However, the ureteral orifices could not be identified due to inflammation of the bladder as well as due to prostatic enlargement. The cone tip catheter was employed; however, the ureteral orifices could not be identified or catheterized. Fluoroscopic views were obtained as well. The prostatic urethra was fulgurated with Ball electrode and electrocautery. However, there was still significant active bleeding. The cystoscope and sheath were removed. A 28-Kenyan continuous-flow resectoscope sheath was introduced under direct vision. The resectoscope was inserted. Fulguration of prostate bleeding was performed with a Rollerball electrode. Hemostasis was complete. The resectoscope sheath removed. Hein catheter was inserted. Bladder irrigation was clear. Rectal examination was performed. Prostate was enlarged. Prostate was greater than 60 g in size without fixation, induration or nodularity. The patient was returned to supine position. The patient tolerated the procedure without complication. Bina Woo MD
== END 2017-06-08 19:25 | disposition home or self-care (01) ==
LOC: C.ER 05:13 → C.9E 06:46 → C.3T 15:27 → OBSVTOIN 06-08 12:24 → INTOOBSV 06-08 12:24
PROVIDERS: ADMIT Hospitalist; ATTEND Hospitalist
DX: R31.9 Hematuria, unspecified (principal); N40.1 Benign prostatic hyperplasia with lower urinary tract symptoms; E11.9 Type 2 diabetes mellitus without complications; E87.1 Hypo-osmolality and hyponatremia; I10 Essential (primary) hypertension; R33.8 Other retention of urine; Z79.84 Long term (current) use of oral hypoglycemic drugs; Z79.899 Other long term (current) drug therapy; Z87.442 Personal history of urinary calculi; N32.89 Other specified disorders of bladder; N42.1 Congestion and hemorrhage of prostate
CPT/HCPCS: 36415; 52214; 74018; 76000; 80053; 80061; 81001; 82533; 82948; 83036; 84436; 84443; 85027; 85610; 85730; 87086; 96365; 96366; 96375; 99285; G0378; J0696; J2270